=== PATIENT | male | born 1980 | race Two or more races ===

== ENCOUNTER 2018-07-02 06:56 | Day surgery (SDC) | payer OTHER ==
[2018-07-02] MEDS ORDERED: FENTANYL 100MCG/2ML SOL ONE (07:57)
[2018-07-02] MEDS ORDERED: LIDOCAINE HCL 1% MPF 30 SOL ONE (07:57)
[2018-07-02] MEDS ORDERED: PROPOFOL 500 MG/50 ML EMU IV ONE (07:57)
[2018-07-02] MEDS ORDERED: CEFAZOLIN SODIUM 1 GM PDS ONE (08:36)
[2018-07-02] MEDS: BUPIVACAINE/EPI 0.5% 10 ML SOL INFIL ONE ×2 (08:55→09:00)
[2018-07-02 10:19] VITALS: BP 108/73; PULSE 44; RESP 18; TEMP 97.5; O2SAT 99
== END 2018-07-02 11:17 | disposition home or self-care (01) ==
LOC: SURG 06:56
PROVIDERS: ATTEND Surgery
DX: K40.90 Unilateral inguinal hernia, without obstruction or gangrene, not specified as recurrent (principal)
CPT/HCPCS: J0690; J3010; J2001; J2704